=== PATIENT | female | born 1995 ===

== ENCOUNTER 2022-04-18 18:41 | Emergency (ER) | payer SELFPAY ==
[~2022-04-18] VITALS: Ht 167.6 cm; Wt 84.1 kg
[2022-04-18 18:47] VITALS: TEMP 97.7
[2022-04-18 19:14] LABS: BASO % 0.5 % (0.0-2.0); EOS # 0.1 K/mm3 (0.0-0.7); EOS % 1.2 % (0.0-4.0); GRAN # 4.8 K/mm3 (1.4-6.5); GRAN % 63.1 % (42.2-75.2); HEMATOCRIT 42.6 % (37.0-47.0); LYMPH # 2.3 K/mm3 (1.2-3.4); LYMPH % 29.9 % (20.0-51.0); MEAN CELL VOLUME 89 fl (80.0-100.0); MEAN CORPUSCULAR HEMOGLOBIN 29 pg (27-31); MEAN CORPUSCULAR HGB CONC 33 g/dl (33.0-37.0); MEAN PLATELET VOLUME 9.7 fl (7.4-10.4); MONO # 0.4 K/mm3 (0.1-0.6); PLATELET COUNT 363 K/mm3 (130-400); RED BLOOD COUNT 4.81 M/mm3 (4.10-5.30); REDCELL DISTRIBUTION WIDTH-CV 12.8 % (11.5-14.5)
[2022-04-18 19:33] LABS: ALBUMIN 3.7 gm/dL (3.5-5.0); BILIRUBIN,TOTAL 0.4 mg/dL (0.2-1.2); CALCIUM 8.9 mg/dL (8.4-10.2); CREATININE, serum 0.72 mg/dL (0.57-1.11); POTASSIUM 3.6 mmol/L (3.5-4.5); TOTAL PROTEIN 6.8 gm/dL (6.2-8.1)
[2022-04-18 20:53] VITALS: BP 130/66; PULSE 71
== END 2022-04-18 20:55 | disposition home or self-care (01) ==
LOC: COL.ER 18:41
PROVIDERS: Personal Emergency Response Attendant
DX: O9A.219 Injury, poisoning and certain other consequences of external causes complicating pregnancy, unspecified trimester (principal); S30.1XXA Contusion of abdominal wall, initial encounter; O99.330 Smoking (tobacco) complicating pregnancy, unspecified trimester; F17.290 Nicotine dependence, other tobacco product, uncomplicated; Z28.310 Unvaccinated for COVID-19; W31.89XA Contact with other specified machinery, initial encounter; Y92.59 Other trade areas as the place of occurrence of the external cause; Y99.0 Civilian activity done for income or pay
CPT/HCPCS: J2270; J2405; J7030